=== PATIENT | male | born 1950 | race Caucasian/White ===

== ENCOUNTER 2016-06-18 15:37 | Inpatient (IN) | payer BC ==
[~2016-06-18] VITALS: Ht 175.3 cm; Wt 91.7 kg
[2016-09-11] MEDS ORDERED: [UNRECOGNIZED DRUG - OTHER] IV SCH ×2 (05:45)
[2016-09-11] MEDS ORDERED: VANCOMYCIN 1000 MG/NS 250 ML (for <70 kg) IV SCH ×2 (05:45)
[2016-09-11] MEDS ORDERED: POVIDONE IODINE 7.5% SCRUB 118 ML BOTTLE TOPICAL SCH (05:45)
[2016-09-11] MEDS ORDERED: METOPROLOL TARTRATE 25 MG TAB PO PRN (05:45)
[2016-09-11] MEDS ORDERED: TRANEXAMIC ACID IV SCH ×3 (05:45→10:00)
[2016-09-11] MEDS ORDERED: EXPAREL PERI-ARTICULAR INJECTION (TOTAL VOL. 60 ML) P-ARTICULR SCH ×2 (05:45)
[2016-09-11] MEDS ORDERED: SODIUM CHLORID 0.9% 500 ML IV PRN (05:45)
[2016-09-11] MEDS ORDERED: ceFAZolin 2 GM PREMIX 50 ML IV SCH (05:45)
[2016-09-11] MEDS ORDERED: INSULIN HUMAN REGULAR 1,000 UNITS/10 ML VIAL SQ PRN (05:45)
[2016-09-11] MEDS ORDERED: DEXAMETHASONE SOD PHOS 20 MG/5 ML VIAL IV PRN (05:45)
[2016-09-11] MEDS ORDERED: CHLORHEXIDINE GLUCONATE 2 % 1 PACK (2 CLOTHS) TOPICAL PRN (05:45)
[2016-09-11] MEDS ORDERED: POVIDONE IODINE 5% (ANTISEPSIS KIT) 4 APPLICATIONS EACH NARE PRN (05:45)
[2016-09-11] MEDS ORDERED: LACTATED RINGER'S 1000 ML IV PRN (05:45)
[2016-09-11] MEDS ORDERED: TAMS0.4C4 PO (05:53)
[2016-09-11 05:54] VITALS: BP 142/91; PULSE 90; RESP 16; TEMP 97.8; O2SAT 96
[2016-09-11] MEDS ORDERED: GENTAMICIN SULFATE 80 MG/2 ML VIAL ONE (06:19)
[2016-09-11] MEDS ORDERED: FAMOTIDINE 20 MG/2 ML VIAL ONE (06:27)
[2016-09-11] MEDS ORDERED: ACETAMINOPHEN 1000 MG/100 ML VIAL IV ONE (06:27)
[2016-09-11] MEDS ORDERED: MIDAZOLAM HCL 2 MG/2 ML VIAL ONE (06:27)
[2016-09-11] MEDS ORDERED: fentaNYL CITRATE 250 MCG/5 ML AMP ONE (06:34)
[2016-09-11] MEDS ORDERED: HYDROmorphone HCL PF 2 MG/ML VIAL ONE (06:34)
--- NOTE | 2016-09-11 06:47 | HHI.DCPOC ---
Discharge Care Plan Diagnosis: (1) Osteoarthritis of right hip (2) Status post total hip replacement, right Your Health Problems Are: Difficulty with ADL Goals to Promote Your Health * To prevent worsening of your condition and complications * To maintain your health at the optimal level Directions to Meet Your Goals Take your medications as prescribed Follow your dietary instruction Follow activity as directed Keep your appointments as scheduled Take your immunizations and boosters as scheduled If your symptoms worsen call your PCP, if no PCP go to Urgent Care Center or Emergency Room Smoking is Dangerous to Your Health. Avoid second hand smoke Call the 24-hour hour crisis hotline for domestic abuse at Aravind Marie September 11, 2016 06:47
--- NOTE | 2016-09-11 06:48 | HHI.FF ---
Face to Face Verification Diagnosis: (1) Status post total hip replacement, right (2) Osteoarthritis of right hip Physical Therapy Gait training, Transfer training, bed to chair Hip: Total hip Right LE Weight Bearing: WB as tolerated Right LE Range of Motion: Active ROM Nursing Nursing: Amol teaching, Dressing changes Dressing Changes: Daily dressing change I have seen patient Silvestre Covington on 09/11/16. My clinical findings support the need for the requested home health care services because: Limited ability to care for self High risk of falls I certify that my clinical findings support that this patient is homebound because: Post-op weakness Unsteady gait/balance Aravind Marie September 11, 2016 06:48
[2016-09-11] MEDS ORDERED: WALKER WHEELS/F1 MIS (06:49)
[2016-09-11] MEDS ORDERED: COMMODE 3-IN-11 MIS (06:49)
--- NOTE | 2016-09-11 08:37 | PD.OP ---
cc: Vince Yates MD Operative Report Date of Surgery: September 11, 2016 Preoperative Diagnosis: Right hip severe osteoarthritis Postoperative Diagnosis: Same Procedure: Right total hip arthroplasty Anesthesia: Gen. Surgeon: Vince Yates Starter Cup Powder Mixer(s): SIXTO Encarnacion The surgical procedure was assisted by my Advanced Registered Nurse Practitioner. My OBSTETRICS TEACHER presence was necessary throughout this case for the manipulation and positioning of the surgical extremity. My OBSTETRICS TEACHER was assisting me throughout the duration of this procedure. The skill set of an Advance Registered Nurse Practitioner was medically necessary to complete this procedure. During the surgical case, the surgical assist was working at the back table and the Advance Registered Nurse Practitioner was directly assisting me. Operation and Findings: IMPLANT DESCRIPTION: 1. [place] Gription Cup, acetabular size 56. 2. [place] AltrX polyethylene, neutral. 4. Corail femoral stem size 12, no collar, standard offset. 5. Femoral head/neck ceramic, 36, +5. ESTIMATED BLOOD LOSS: 150 cc. JUSTIFICATION FOR PROCEDURE: The patient has end-stage osteoarthritis to the hip. There is an attached conservative measures pathway form in the chart that describes the nonoperative measures that were undertaken prior to consideration of surgical management. The patient understood the risks and benefits of surgical management. See my office notes for further details. PROCEDURE: The patient was brought back to the operative theatre. Adequate anesthesia was obtained. The patient received intravenous vancomycin and Ancef. The patient was carefully placed on the operative table. The lower extremity was prepped and draped in the usual sterile fashion. Fluoroscopic images were obtained. We made a standard anterior incision over the hip. We dissected through the TFL fascia, exposing the anterior capsule. Arthrotomy was performed in a T-shaped fashion. The capsule was tagged with a #2 FiberWire. End-stage arthritis was identified. Osteotomy was performed through the femoral neck exposing the acetabulum. Remnants of the labrum were resected and osteophytes were removed. We sequentially reamed the acetabulum. We trialed the hip and placed the final cup into position. This was done under fluoroscopic guidance to obtain the appropriate inclination and anteversion. A manhole cover was placed into the acetabular component. We then placed the final polyethylene into position and confirmed that it was well seated. Capsular attachments on the calcar and the inner aspect of the greater trochanter were resected. On the proximal aspect of the femur we used a rongeur , box osteotome, canal finder, sequential broaches and lateralizing rasp. We calcar planed the proximal femur. Then thoroughly irrigated the wound. We trialed the hip with the appropriate size stem. We placed the final stem in to position and trialed again. The hip was stable while it was externally rotated 70 degrees when the leg was lowered to the floor. The final head was applied, and final fluoroscopic images were obtained. The wound was thoroughly irrigated again. Interarticular injection of liposomal bupivacaine was given. The capsule was closed with #2 FiberWire and #1 Vicryl. The deep fascia was closed with a #2 Stratafix, followed by 2-0 Vicryl in the skin and ghislaine. Postop plan is to weight-bear as tolerated. DVT prophylaxis will be performed with Eileen, ROYCE gill, early mobilization, and Lovenox followed by aspirin. Vince Yates MD September 11, 2016 08:37
[2016-09-11] MEDS ORDERED: ENOX40P SQ (08:38)
[2016-09-11] MEDS ORDERED: ASPI325T PO (08:38)
[2016-09-11] MEDS ORDERED: NORC5TAB PO (08:38)
[2016-09-11] MEDS ORDERED: MAGNESIUM HYDROXIDE SUSP 30 ML CUP PO PRN (08:45)
[2016-09-11] MEDS ORDERED: diphenhydrAMINE HCL 50 MG/ML VIAL IV PRN (08:45)
[2016-09-11] MEDS ORDERED: Post-op Orders (for Pharmacy) MISC XX ONE (08:45)
[2016-09-11] MEDS ORDERED: NALOXONE HCL 0.4 MG/ML AMP IV PRN (08:45)
[2016-09-11] MEDS ORDERED: ACETAMINOPHEN/HYDROcodone 325 MG/5 MG TAB PO PRN (08:45)
[2016-09-11] MEDS ORDERED: SODIUM CHLORIDE 0.9% FLUSH 5 ML FLUSH IVF PRN (08:45)
[2016-09-11] MEDS ORDERED: ALUMINUM/MAGNESIUM/SIMETH 30 ML CUP PO PRN (08:45)
[2016-09-11] MEDS ORDERED: MORPHINE SULFATE 4 MG/ML INJ IV PUSH PRN (08:45)
[2016-09-11] MEDS ORDERED: ONDANSETRON HCL 4 MG/2 ML VIAL IVP PRN (08:45)
[2016-09-11] MEDS ORDERED: BISACODYL 10 MG SUPP RECTAL PRN (08:45)
[2016-09-11] MEDS ORDERED: DO NOT ADM ANY ANTICOAGULANT DRUGS PRN (08:52)
[2016-09-11] MEDS: SODIUM CHLORIDE 0.9% FLUSH 5 ML FLUSH IVF SCH ×2 (09:00→20:09)
[2016-09-11] MEDS ORDERED: *MEPERIDINE 25 MG INJ VIAL PERIprocedural Use ONLY ONE (09:02)
[2016-09-11] MEDS ORDERED: *morphine SULFATE 8 MG/ML PERIprocedure ONLY ONE ×2 (09:26→09:40)
--- NOTE | 2016-09-11 09:26 | RADRPT ---
EXAM DATE/TIME: 09/11/2016 07:15 [facility] COMPARISON: No previous studies available for comparison. INDICATIONS : Post-op total right hip arthroplasty. MEDICAL HISTORY : Arthritis. SURGICAL HISTORY : None. ENCOUNTER: Initial ACUITY: 1 day PAIN SCORE: Non-responsive. LOCATION: Right hip. FINDINGS: 3 intraoperative spot images of the right hip. Right total hip prosthesis in place. Alignment within normal limits. CONCLUSION: Intraoperative images demonstrating right total hip prosthesis in place. Adriel Carcamo MD on September 11, 2016 at 9:24 Board Certified Radiologist. This report was verified electronically.
[2016-09-11] MEDS: SODIUM CHLOR 0.9% 1000 ML INJ 1,000 ML IV SCH ×2 (09:44→18:18)
--- NOTE | 2016-09-11 09:49 | PD.CONS ---
HPI Service [facility] Hospitalists Consult Requested By Vince Yates M.D. (orthopedics) Reason for Consult Medical Management Primary Care Physician Donte Patiño M.D. Diagnoses: (1) BPH (benign prostatic hyperplasia) (2) Osteoarthritis of right hip History of Present Illness Written by Mert Ludwig PA-C, acting as scribe for Dr. Luis Nieves on 09/11/16 at 14:26. Mr. Covington is 65 yo, with history of bilateral hip osteoarthritis and BPH. He was admitted to [facility] on 10/11/16 and underwent right hip arthroplasty performed by Dr. Vince Yates. The hospitalist team was consulted for medical management. At time of interview, was sitting upright in a bedside chair eating lunch. He reported no pain with sitting, yet endorsed pain with movement of his repaired hip. He also endorsed experiencing some dizziness after surgery, yet this has improved with eating and passage of time. He did inquire when Correia catheter was to be removed as he found the was experiencing some discomfort. Mr. Covington's medical history was reviewed with him and he endorsed benign prostatic hypertrophy as his only active health issue for which he takes medication. He currently denied fever, nausea, vomiting, diarrhea, fever. chills, pain ( other than related to his surgery), headache, dizziness, cough, or shortness of breath. He did endorse experiencing a hoarse throat which was reportedly improving with fluids and ice chips. A 10 pt ROS was conducted and, except as noted above, was negative. Review of Systems Except as stated in HPI: all other systems reviewed are Neg Past Family Social History Allergies: Coded Allergies: No Known Allergies (Unverified , 09/11/16) Past Medical History Benign Prostatic Hypertrophy Osteoarthritis cleft palate and lip Past Surgical History Orthoscopic procedure of right knee. Cleft palate and lip repair Reported Medications Reported Meds & Active Scripts Active Aspirin 325 Mg Tab 325 Mg PO DAILY Start Aspirin after Lovenox is completed. Lovenox Inj (Enoxaparin Sodium) 40 Mg/0.4 Ml Syr 40 Mg SQ DAILY Start Aspirin after Lovenox is completed. Gregory (Hydrocodone-Acetaminophen) 5-325 mg Tab 1-2 Tab PO Q4H PRN Reported Tamsulosin (Tamsulosin HCl) 0.4 Mg Cap 0.4 Mg PO HS Active Ordered Medications Current Medications Medications (Trade) Dose Ordered Sig/Otoniel Route Start Time Stop Time Status Last Admin Povidone Iodine 1 applic 1 applic ONCE TOPICAL 09/11/16 05:45 09/14/16 05:44 09/11/16 05:50 Tranexamic Acid 915 mg/Sodium Chloride 109.15 ml @ 200 mls/ hr ONCE IV 09/11/16 05:45 09/11/16 16:00 09/11/16 06:52 (Exparel Pf 1.3% Inj/NS Inj) 60 ml @ 120 mls/hr ONCE P-ARTICULR 09/11/16 05:45 09/11/16 16:00 09/11/16 07:53 Tamsulosin HCl 0.4 mg 0.4 mg HS PO 09/11/16 21:00 (NS 1000 ml Inj) 1,000 ml @ 100 mls/hr Q10H IV 09/11/16 08:33 09/11/16 09:44 (NS Flush) 2 ml UNSCH PRN IVF 09/11/16 08:45 IV Flush 2 ml 2 ml BID IVF 09/11/16 09:00 (Ancef Inj/NS Inj) 100 ml @ 200 mls/hr Q6H IV 09/11/16 12:00 09/12/16 00:29 09/11/16 12:00 (Decadron Inj) 10 mg ONCE ONCE IV 09/12/16 07:45 09/12/16 07:46 (Lovenox Inj) 40 mg Q24H SQ 09/12/16 08:00 09/21/16 08:01 (Gregory 5-325 Mg) 1 tab Q4H PRN PO 09/11/16 08:45 Acetaminophen/ Hydrocodone Bitart 2 tab 2 tab Q4H PRN PO 09/11/16 08:45 (Cyklokapron Inj/ NS Inj) 109.13 ml @ 200 mls/ hr UNSCH IV 09/11/16 10:00 09/11/16 16:00 09/11/16 10:21 (Theragran M Tab) 1 tab BID PO 09/12/16 21:00 11/11/16 20:59 (Zofran Inj) 4 mg Q6H PRN IVP 09/11/16 08:45 (Colace) 100 mg BID PO 09/12/16 21:00 (Mag-Al Plus Susp Liq) 30 ml Q6H PRN PO 09/11/16 08:45 (Ambien) 5 mg HS PRN PO 09/11/16 21:00 (Dulcolax Supp) 10 mg DAILY PRN RECTAL 09/11/16 08:45 (Milk Of Magnesia Liq) 30 ml DAILY PRN PO 09/11/16 08:45 (Narcan Inj) 0.4 mg UNSCH PRN IV 09/11/16 08:45 (Benadryl Inj) 25 mg Q6H PRN IV 09/11/16 08:45 (Morphine Inj) 2 mg Q3H PRN IV PUSH 09/11/16 08:45 Miscellaneous Information ALL NURSING DEPARTME... UNSCH PRN .XX 09/11/16 08:52 09/12/16 08:51 Family History Mother breast cancer Father_ cardiac disease and underwent bypass surgery. Social History Reported smoking 1 ppd x 10 years [id number]. Beer use was endorsed one per week. Recreational and illicit drug use was denied. Physical Exam Vital Signs Vital Signs Date Time Temp Pulse Resp B/P Pulse Ox O2 Delivery O2 Flow Rate FiO2 09/11/16 08:55 97.8 93 16 147/75 97 Nasal Cannula 3 09/11/16 05:54 97.8 90 16 142/91 96 Physical Exam GENERAL: This is a well-nourished, well-developed patient, in no apparent distress. SKIN: No rashes, ecchymoses or lesions. Cool and dry. Surgical wound noted right hip HEAD: Atraumatic. Normocephalic. No temporal or scalp tenderness. EYES: Pupils equal round and reactive. Extraocular motions intact. No scleral icterus. No injection or drainage. ENT: Nose without bleeding or purulent drainage. Uvula midline. Airway patent. NECK: Trachea midline. No lymphadenopathy. Supple, nontender. CARDIOVASCULAR: Regular rate and rhythm without murmurs, gallops, or rubs. RESPIRATORY: Clear to auscultation. Breath sounds equal bilaterally. No wheezes , rales, or rhonchi. GASTROINTESTINAL: Abdomen soft, non-tender, nondistended. No hepato- splenomegaly. No guarding. MUSCULOSKELETAL: Extremities without clubbing, cyanosis, or edema. No joint tenderness, effusion, or edema noted. No calf tenderness. NEUROLOGICAL: Awake and alert. Cranial nerves II through XII intact. Motor and sensory grossly within normal limits. Five out of 5 muscle strength in all muscle groups except right lower extremity which was not tested due to recent surgery. Speech was clear and fluent. Laboratory Laboratory Tests Test 09/11/16 05:50 Blood Type O POSITIVE Antibody Screen NEGATIVE Blood Bank Comment Imaging Last Impressions Hip and Pelvis X-Ray 09/11/16 0833 Signed Impressions: Service Date/Time: Sunday, September 11, 2016 09:08 - CONCLUSION: Postoperative appearance of right hip prosthesis. Moderate severity left hip osteoarthritic findings. Adriel Carcamo MD Hip X-Ray 09/11/16 0000 Signed Impressions: Service Date/Time: Sunday, September 11, 2016 07:15 - CONCLUSION: Intraoperative images demonstrating right total hip prosthesis in place. Adriel Carcamo MD Assessment and Plan Problem List: (1) Osteoarthritis of right hip ICD Code: M16.11 Status: Acute (2) BPH (benign prostatic hyperplasia) ICD Code: N40.0 Status: Acute Assessment and Plan osteoarthritis of right hip -Post operative care deferred to orthopedics -Pain management per orthopedics -Rehabilitation per orthopedics Benign Prostatic hypertrophy -Continue home regimen of Tamsulosin 0.4 mg q hs DVT prophylaxis: SCD's ordered by Orthopedics. Lovenox ordered by Orthopedics 40 mg daily to begin on 09/12/16. Thank you for the consult and the Hospitalist team will continue to follow this patient. Discussed Condition With Pt, his , RN. Problem Qualifiers (1) BPH (benign prostatic hyperplasia): Qualified Code: N40.0 - Benign prostatic hyperplasia, presence of lower urinary tract symptoms unspecified, unspecified morphology Mert Ludwig Jr. September 11, 2016 09:49
[2016-09-11] MEDS ORDERED: SODIUM CHLORIDE 0.9% IV SCH (10:00)
--- NOTE | 2016-09-11 10:23 | RADRPT ---
EXAM DATE/TIME: 09/11/2016 09:08 [facility] COMPARISON: No previous studies available for comparison. INDICATIONS : Post op right hip. MEDICAL HISTORY : None. SURGICAL HISTORY : None. ENCOUNTER: Initial ACUITY: 1 day PAIN SCORE: 4/10 LOCATION: Right Hip. FINDINGS: 3 views of the pelvis and right hip were performed. Right hip prosthesis in place. Cutaneous ghislaine noted. Alignment within normal limits. No evidence of fracture. Moderate sized left hip osteophytes a nd moderate superior left hip joint narrowing. CONCLUSION: Postoperative appearance of right hip prosthesis. Moderate severity left hip osteoarthritic findings. Adriel Carcamo MD on September 11, 2016 at 10:20 Board Certified Radiologist. This report was verified electronically.
[2016-09-11 11:33] VITALS: BP 120/71; PULSE 109; RESP 17; TEMP 98.1; O2SAT 92
[2016-09-11] MEDS ORDERED: PROPOFOL 200 MG/20 ML AMP IV ONE (12:00)
[2016-09-11] MEDS ORDERED: TRANEXAMIC ACID INJ 1,000 MG/10 ML AMP IV ONE (12:00)
[2016-09-11] MEDS ORDERED: PHENYLEPH/NS 1000 MCG/10 ML SYR IV ONE (12:00)
[2016-09-11] MEDS ORDERED: ePHEDrine/NS 25 MG/5 ML SYR IV ONE (12:00)
[2016-09-11] MEDS ORDERED: NEOSTIGMINE 3 MG/3 ML SYR IV ONE (12:00)
[2016-09-11] MEDS ORDERED: ONDANSETRON HCL 4 MG/2 ML VIAL IV PUSH ONE (12:00)
[2016-09-11 16:00] VITALS: BP 120/66; PULSE 71; RESP 17; TEMP 95.8; O2SAT 95
[2016-09-11 16:34] VITALS: O2SAT 92
[2016-09-11 20:13] VITALS: BP 114/69; PULSE 76; RESP 18; TEMP 97.1; O2SAT 94
[2016-09-11] MEDS ORDERED: TAMSULOSIN HCL 0.4 MG CAP PO SCH (21:00)
[2016-09-11] MEDS ORDERED: ZOLPIDEM TARTRATE 5 MG TAB PO PRN (21:00)
[2016-09-11] MEDS: ACETAMINOPHEN/HYDROcodone 325 MG/5 MG TAB PO PRN (21:29)
[2016-09-12 00:43] VITALS: BP 110/58; PULSE 67; RESP 18; TEMP 97.4; O2SAT 97
[2016-09-12] MEDS: ACETAMINOPHEN/HYDROcodone 325 MG/5 MG TAB PO PRN ×2 (03:19→08:52)
[2016-09-12] MEDS: SODIUM CHLOR 0.9% 1000 ML INJ 1,000 ML IV SCH ×2 (04:33→14:33)
[2016-09-12 05:58] LABS: HEMATOCRIT 34.8 % (39.0-51.0); MEAN CELL VOLUME 90.6 FL (80.0-100.0); MEAN CORPUSCULAR HEMOGLOBIN 31.3 PG (27.0-34.0); MEAN CORPUSCULAR HGB CONC 34.6 % (32.0-36.0); PLATELET COUNT 171 TH/MM3 (150-450); RED BLOOD COUNT 3.84 MIL/MM3 (4.50-5.90); REVIEW FLAG FINAL; WHITE BLOOD COUNT 9.1 TH/MM3 (4.0-11.0)
[2016-09-12 06:27] VITALS: BP 109/65; PULSE 67; RESP 18; TEMP 96.7; O2SAT 95
[2016-09-12] MEDS ORDERED: DEXAMETHASONE SOD PHOS 20 MG/5 ML VIAL IV ONE (07:45)
[2016-09-12 08:00] VITALS: BP 122/62; PULSE 72; RESP 20; TEMP 96.4; O2SAT 93
[2016-09-12] MEDS ORDERED: ENOXAPARIN SODIUM 40 MG/0.4 ML SYRINGE SQ SCH (08:00)
[2016-09-12] MEDS: SODIUM CHLORIDE 0.9% FLUSH 5 ML FLUSH IVF SCH (08:50)
[2016-09-12 12:00] VITALS: BP 129/78; PULSE 76; RESP 20; TEMP 97.3; O2SAT 96
--- NOTE | 2016-09-12 13:00 | PD.ORT.PN ---
Subjective Post Op Day #: 1 Subjective Remarks Patient is OOB in chair with minimal pain to the right hip. Patient requesting to go home today with home health. Objective Vitals Vital Signs Date Time Temp Pulse Resp B/P Pulse Ox O2 Delivery O2 Flow Rate FiO2 09/12/16 08:00 96.4 72 20 122/62 93 09/12/16 06:27 96.7 67 18 109/65 95 09/12/16 00:43 97.4 67 18 110/58 97 09/11/16 20:13 97.1 76 18 114/69 94 09/11/16 16:34 92 21 09/11/16 16:00 95.8 71 17 120/66 95 I/O 09/11/16 09/11/16 09/11/16 09/12/16 09/12/16 09/12/16 07:00 15:00 23:00 07:00 15:00 23:00 Intake Total 1680 ml 1049 ml 607 ml Output Total 575 ml 575 ml 450 ml Balance 1105 ml 474 ml 157 ml Intake Oral 480 ml 480 ml 360 ml IV Total 200 ml 569 ml 247 ml Other 1000 ml Output Urine Total 425 ml 575 ml 450 ml Estimated Blood Loss 150 ml # Voids 0 # Bowel Movements 0 0 0 Result Diagram: 09/12/16 0529 Procedures Right SHAY Objective Remarks The patient's dressing was changed with scant serosanguineous drainage. Incision is well approximated with surgical clips intact. No redness or s/s of infection. EHL/TA/G intact. No calf tenderness and swelling. 2+ pedal pulses. Minimal swelling. + SILT Assessment & Plan Ortho Post Op Day #: 1 Problem List: Assessment and Plan POD #1: Right SHAY 1. WBAT RLE 2. Lovenox followed by ASA for DVT prophylaxis 3. Ice to the right hip PRN 4. Stable for discharge home with home health today. Aravind Marie Sep 12, 2016 13:00
--- NOTE | 2016-09-12 13:42 | HHI.PR ---
Subjective Remarks In bed. Did not sleep much last night however did not take the sleeping aid. Says has no pain at this time. Denies any chest pain or sob. No fever or chills. No n/v/d/c. Correia removed, monitor if voiding. Objective Vitals Vital Signs Date Time Temp Pulse Resp B/P Pulse Ox O2 Delivery O2 Flow Rate FiO2 09/12/16 08:00 96.4 72 20 122/62 93 09/12/16 06:27 96.7 67 18 109/65 95 09/12/16 00:43 97.4 67 18 110/58 97 09/11/16 20:13 97.1 76 18 114/69 94 09/11/16 16:34 92 21 09/11/16 16:00 95.8 71 17 120/66 95 I/O 09/11/16 09/11/16 09/11/16 09/12/16 09/12/16 09/12/16 07:00 15:00 23:00 07:00 15:00 23:00 Intake Total 1680 ml 1049 ml 607 ml Output Total 575 ml 575 ml 450 ml Balance 1105 ml 474 ml 157 ml Intake Oral 480 ml 480 ml 360 ml IV Total 200 ml 569 ml 247 ml Other 1000 ml Output Urine Total 425 ml 575 ml 450 ml Estimated Blood Loss 150 ml # Voids 0 # Bowel Movements 0 0 0 Result Diagram: 09/12/16 0529 Imaging Last Impressions Hip and Pelvis X-Ray 09/11/16 0833 Signed Impressions: Service Date/Time: Sunday, September 11, 2016 09:08 - CONCLUSION: Postoperative appearance of right hip prosthesis. Moderate severity left hip osteoarthritic findings. Adriel Carcamo MD Hip X-Ray 09/11/16 0000 Signed Impressions: Service Date/Time: Sunday, September 11, 2016 07:15 - CONCLUSION: Intraoperative images demonstrating right total hip prosthesis in place. Adriel Carcamo MD Objective Remarks GENERAL: This is a pleasant well-nourished, well-developed patient, in no apparent distress. CARDIOVASCULAR: Regular rate and rhythm without murmurs, gallops, or rubs. RESPIRATORY: Clear to auscultation. Breath sounds equal bilaterally. No wheezes , rales, or rhonchi. GASTROINTESTINAL: Abdomen soft, non-tender, nondistended. No hepato- splenomegaly. No guarding. MUSCULOSKELETAL: S/P right hip surgery. Extremities without clubbing, cyanosis, or edema. No joint tenderness, effusion, or edema noted. No calf tenderness. NEUROLOGICAL: Awake and alert. Cranial nerves grossly intact. Motor and sensory grossly within normal limits. Speech clear. A/P Problem List: (1) Osteoarthritis of right hip ICD Code: M16.11 Status: Acute (2) BPH (benign prostatic hyperplasia) ICD Code: N40.0 Status: Acute Assessment and Plan Osteoarthritis of right hip Management per orthopedics Pain management per orthopedics PT Antiemetics , laxatives as need. Benign Prostatic hypertrophy -Continue home regimen of Tamsulosin 0.4 mg q hs H/o rectal cancer s/p radiation nad chemo 2013, follows with onc as OP for surveilance. DVT prophylaxis: SCD's, Lovenox Thank you for the consult, will continue to follow. Discussed Condition With Patient, nurse Problem Qualifiers (1) BPH (benign prostatic hyperplasia): Qualified Code: N40.0 - Benign prostatic hyperplasia, presence of lower urinary tract symptoms unspecified, unspecified morphology Luz Marina Nieves MD Sep 12, 2016 13:42
[2016-09-12] MEDS ORDERED: MULTIVITAMINS/MINERALS THERAPEUTIC TAB PO SCH (21:00)
[2016-09-12] MEDS ORDERED: DOCUSATE SODIUM 100 MG CAP PO SCH (21:00)
--- NOTE | 2016-09-15 21:36 | HHI.DS ---
Discharge Summary Admission Date September 11, 2016 at 05:25 Discharge Date: Sep 12, 2016 Admitting Diagnosis OA right hip Status post total hip replacement, right Diagnosis: (1) Osteoarthritis of right hip Diagnosis: Principal (2) Status post total hip replacement, right Diagnosis: Principal Procedures Right SHAY Brief History This is a 65 year old male patient with severe OA of the right hip. CBC/BMP: 09/12/16 0529 PE at Discharge The patient's dressing was changed with scant serosanguineous drainage. Incision is well approximated with surgical clips intact. No redness or s/s of infection. EHL/TA/G intact. No calf tenderness and swelling. 2+ pedal pulses. Minimal swelling. + SILT Hospital Course The patient was admitted to the hospital for severe OA of the right hip to have a right SHAY. The patient's surgery went well with no complications. The patient is WBAT on the RLE. The patient had a regular diet. The patient was placed on Lovenox followed by ASA for DVT prophylaxis. The patient was discharged home with home health and will f/u with Dr. Yates in 1-2 weeks. Pt Condition on Discharge: Stable Discharge Disposition: Disch w/ Home Health Serv Discharge Instructions Diet Instructions: Diabetic Diet Activities You Can Perform: Weight Bearing as Eric Activities to Avoid: Strenuous Activity Follow up Referrals: Orthopedics with Vince Yates MD [facility]/ with [facility] New Medications: Aspirin (Aspirin) 325 Mg Tab 325 MG PO DAILY Start Aspirin after Lovenox is completed. Prevent Blood Clot # 30 Ref 0 TAB Commode 3-in-1 (Commode 3-in-1) 1 Mis Mis 1 EA .ROUTE DIRECTED #1 Ref 0 EA Enoxaparin Inj (Lovenox Inj) 40 Mg/0.4 Ml Syr 40 MG SQ DAILY Start Aspirin after Lovenox is completed. Blood Clot Prevention # 10 Ref 0 SYRINGE Hydrocodone-Acetaminophen ([place]) 5-325 mg Tab 1-2 TAB PO Q4H PRN PAIN #60 Ref 0 TAB Walker with Front Wheels (Walker with Front Wheels) 1 Mis Mis 1 EA .ROUTE DIRECTED #1 Ref 0 EA Continued Medications: Tamsulosin (Tamsulosin) 0.4 Mg Cap 0.4 MG PO HS Manage Prostate Problems #30 Ref 0 CAP Aravind Marie Sep 15, 2016 21:36
== END 2016-09-12 17:40 | disposition home health service (06) | DRG 470 ==
LOC: HSDI 09-11 05:25 → N06B 09-11 11:10
PROVIDERS: ADMIT Orthopaedic Surgery; ATTEND Orthopaedic Surgery
PROC: 0SR904A Replacement of Right Hip Joint with Ceramic on Polyethylene Synthetic Substitute, Uncemented, Open Approach (ICD-10-PCS; principal; 2016-09-11 06:40)
DX: M16.11 Unilateral primary osteoarthritis, right hip (principal); N40.0 Benign prostatic hyperplasia without lower urinary tract symptoms; Z79.82 Long term (current) use of aspirin; Z87.891 Personal history of nicotine dependence; Z92.21 Personal history of antineoplastic chemotherapy; Z92.3 Personal history of irradiation; Z85.048 Personal history of other malignant neoplasm of rectum, rectosigmoid junction, and anus; Z87.730 Personal history of (corrected) cleft lip and palate
CPT/HCPCS: 73502; 76000; 85027; 86850; 86900; 86901; 94150; C1776; C9290; J0131; J0690; J1100; J1170; J1580; J1650; J2175; J2250; J2270; J2370; J2405; J2710; J3010; J3370; J7030; J7050; J7120

== ENCOUNTER → 2017-02-07 | Outpatient (CLI) | payer BC ==
[~2017-02-07] MED LIST: ASPI-146 PO; ASPI-183 PO; COMMODE 3-IN-11 MIS; ENOX40IN SQ; ENOX40P SQ; FISH1000 PO; NORC5TAB PO; TAMS0.4C4 PO; WALKER WHEELS/F1 MIS
== END ==
LOC: CPRE 10:01
PROVIDERS: ATTEND Orthopaedic Surgery
DX: Z00.00 Encounter for general adult medical examination without abnormal findings (principal)